=== PATIENT | female | born 1945 | race African-American/Black ===

== ENCOUNTER 2019-10-25 19:02 | Emergency (ER) | payer MEDICARE, MEDICAID ==
[~2019-10-25 19:02] MED LIST: Iopamidol-370 76% 500 ML 1 ML ONE
--- NOTE | 2019-10-25 20:00 | RAD ---
EXAM: CHEST ONE VIEW: 10/25/19 HISTORY: Shortness of breath, anxiety. COMPARISON: 09/15/19. FINDINGS: Poor inspiratory effort with minimal increased linear and interstitial markings bilaterally but overa ll stable. Left sided loop recorder. Heart size is within normal limits. IMPRESSION: Poor inspiration. No acute intrathoracic disease. Atherosclerosis of the aorta. Stable from prior roly dy. POS: RRE
[2019-10-25 20:15] LABS: #Eosinphils 0.1 thou/uL (0.0-0.7); #Lymphocytes 2.4 thou/uL (1.20-3.40); #Monocytes 0.8 thou/uL (0.11-0.59); #Neutrophils 11.3 thou/uL (1.40-6.50); %Basophils 0.2 % (0.0-1.0); %Eosinophils 0.5 % (0.0-10.0); %Lymphocytes 16.4 % (21.0-51.0); %Monocytes 5.2 % (0.0-10.0); %Neutrophils 77.7 % (42.0-75.0); Hemoglobin 11.6 g/dL (12.0-16.0); Mean Corpuscular HGB CONC 33.8 g/dL (32.0-36.0); Mean Corpuscular Hemoglobin 30.7 pg (27.0-31.0); Mean Corpuscular Volume 90.9 fL (78.0-98.0); Mean Platelet Volume 6.6 fL (7.4-10.4); Platelet Count 544 thou/uL (130-400); Red Blood Cell (RBC) Count 3.78 mill/uL (4.20-5.40); White Blood Cell (WBC) Count 14.5 thou/uL (4.8-10.8)
[2019-10-25 20:36] LABS: ALT (SGPT) 14 U/L (8-55); AST (SGOT) 18 U/L (5-34); Albumin 4.1 g/dL (3.4-4.8); Alkaline Phosphatase 231 U/L (40-110); Anion Gap 15 mmol/L (10-20); BUN (Urea Nitrogen) 14 mg/dL (9.8-20.1); Bilirubin, Total 0.3 mg/dL (0.2-1.2); Calc. Creatinine Clearance 0 mL/min (70-130); Calcium 9.5 mg/dL (7.8-10.44); Carbon Dioxide 22 mmol/L (23-31); Chloride 102 mmol/L (98-107); Estimated GFR-MDRD 60; Globulin 3.5 g/dL (2.4-3.5); Glucose 161 mg/dL (83-110); Potassium 3.9 mmol/L (3.5-5.1); Protein, Total 7.6 g/dL (6.0-8.3); Sodium 135 mmol/L (136-145)
--- NOTE | 2019-10-25 22:47 | CT ---
CT angiogram of the chest and abdomen: 10/25/2019 COMPARISON: None HISTORY: Chest pain and hypertension, assess for aneurysm or dissection TECHNIQUE: Axial CT imaging at 2.5 mm intervals through the chest and abdomen with IV contrast. Coron al and sagittal 3-D reformatted imaging obtained. FINDINGS: No chest lymphadenopathy. No significant pleural pericardial or mediastinal fluid. No pneum othorax. No pulmonary parenchymal nodule or focal area of pulmonary parenchymal opacity. The hepatic parenchyma is hypodense suggesting steatosis. Cholelithiasis noted. The spleen, pancreas, adr enal glands, and kidneys demonstrate no acute findings. There is diverticulosis of the descending colon. A colonic suture line is noted in the mid transverse colon region. There is no evidence for aneurysm or dissection of the thoracic or abdominal aorta. Coronary arterial calcification is present. The celiac axis, superior mesenteric artery, bilateral renal arteries, and inferior mesenteric artery are patent. There is prominent degenerative change within the mid/lower thoracic spine and within the lower lumba r spine. There are vacuum disc changes at L3-4, L4-5, and L5-S1. There is extensive lower lumbar spine facet hypertrophy and there is anterolisthesis at L4-5 measuring 9 mm. No worrisome lytic or bl astic bone lesion. IMPRESSION: Numerous incidental findings as detailed above. No evidence for aneurysm or dissection of the thoracic or abdominal aorta.
[2019-10-25 23:57] LABS: Bacteria/HPF None Seen HPF (None Seen); Bilirubin Negative (Negative); Blood, Urine Negative (Negative); Clarity Clear (Clear); Glucose, Urine (Dipstick) Normal (Negative); Ketone, Urine Negative (Negative); Leukocyte Negative Leu/uL (Negative); Nitrite Negative (Negative); Protein, Urine (Dipstick) 30 mg/dL (Neg-Trace); RBC/HPF 0-3 HPF (0-3); Specific Gravity, Urine 1.042 (1.002-1.036); Squamous Epithelial 0-3 HPF (0-3); Urobilinogen Normal mg/dL (Less than 2); WBC/HPF 0-3 HPF (0-3)
== END 2019-10-26 00:42 | disposition home or self-care (01) ==
LOC: ERS 19:02
DX: I10 Essential (primary) hypertension (principal); E78.5 Hyperlipidemia, unspecified; E11.9 Type 2 diabetes mellitus without complications; J45.909 Unspecified asthma, uncomplicated; Z87.891 Personal history of nicotine dependence; Z79.899 Other long term (current) drug therapy; Z79.82 Long term (current) use of aspirin; Z79.84 Long term (current) use of oral hypoglycemic drugs
CPT/HCPCS: 36415; 51701; 71045; 71275; 72191; 74175; 80053; 81003; 81015; 83880; 84484; 85025; 93005; 94760; Q9967

== ENCOUNTER 2019-11-05 11:13 | Outpatient (CLI) | payer MEDICARE, MEDICAID ==
--- NOTE | 2019-11-05 12:43 | RAD ---
PA AND LATERAL CHEST: HISTORY: Dyspnea. COMPARISON: 06/30/2019. Correlation is made to CT chest 10/25/2019 which showed nonspecific ground-glass opacities without focal infiltrate. FINDINGS: On the current exam, there is nonspecific linear haziness in the left lower lung which could represen t a peripheral ground-glass infiltrate. There is no evidence of confluent consolidation. No effusio n. No evidence of vascular congestion. Heart and mediastinum unremarkable. Osseous structures unre markable. IMPRESSION: Question infiltrate in the left lower lung. Recommend short-term followup. POS: AH
== END 2019-11-05 11:14 | disposition home or self-care (01) ==
LOC: BICRAD 11:13
PROVIDERS: ATTEND Internal Medicine Pulmonary Disease
DX: R06.00 Dyspnea, unspecified (principal)
CPT/HCPCS: 71046

== ENCOUNTER 2022-02-19 14:17 | Emergency (ER) | payer OTHER, MEDICAID ==
[2022-02-19 15:21] LABS: #Eosinphils 0.1 thou/uL (0.0-0.7); #Lymphocytes 3.2 thou/uL (1.20-3.40); #Monocytes 0.5 thou/uL (0.11-0.59); #Neutrophils 3.9 thou/uL (1.40-6.50); %Basophils 0.5 % (0.0-1.0); %Eosinophils 1.7 % (0.0-10.0); %Lymphocytes 41.6 % (21.0-51.0); %Neutrophils 50.3 % (42.0-75.0); Hemoglobin 11.7 g/dL (12.0-16.0); Mean Corpuscular HGB CONC 30.8 g/dL (32.0-36.0); Mean Corpuscular Hemoglobin 27.4 pg (27.0-31.0); Mean Corpuscular Volume 88.9 fl (78.0-98.0); Mean Platelet Volume 7.8 fL (7.4-10.4); Platelet Count 368 thou/uL (130-400); RBC Distribution Width 15.5 % (11.5-14.5); Red Blood Cell (RBC) Count 4.25 mill/uL (4.20-5.40); White Blood Cell (WBC) Count 7.7 thou/uL (4.8-10.8)
[2022-02-19 15:37] LABS: ALT (SGPT) 19 U/L (8-55); AST (SGOT) 23 U/L (5-34); Albumin 3.8 g/dL (3.4-4.8); Alkaline Phosphatase 192 U/L (40-110); Anion Gap 15 mmol/L (10-20); BUN (Urea Nitrogen) 14 mg/dL (9.8-20.1); Bilirubin, Total 0.6 mg/dL (0.2-1.2); Calc. Creatinine Clearance 0 mL/min (70-130); Calcium 9.8 mg/dL (7.8-10.44); Carbon Dioxide 21 mmol/L (23-31); Chloride 103 mmol/L (98-107); Estimated GFR 56; Globulin 3.7 g/dL (2.4-3.5); Glucose 105 mg/dL (83-110); Potassium 4.7 mmol/L (3.5-5.1); Protein, Total 7.5 g/dL (5.8-8.1); Sodium 134 mmol/L (136-145)
[2022-02-19] MEDS ORDERED: hydrOXYzine 25 MG TAB ONE (16:02)
[2022-02-19] MEDS ORDERED: Acetaminophen 500 MG TAB ONE (16:02)
[2022-02-19] MEDS ORDERED: hydrALAZINE 25 MG TAB ONE (16:04)
== END 2022-02-19 16:26 | disposition home or self-care (01) ==
LOC: ERS 14:17
DX: I10 Essential (primary) hypertension (principal); E11.9 Type 2 diabetes mellitus without complications; E78.00 Pure hypercholesterolemia, unspecified; R51.9 Headache, unspecified; Z87.891 Personal history of nicotine dependence; Z79.84 Long term (current) use of oral hypoglycemic drugs; Z79.899 Other long term (current) drug therapy
CPT/HCPCS: 36415; 70450; 80053; 84484; 85025; 93005

== ENCOUNTER 2022-03-04 14:38 | Inpatient (IN) | payer OTHER, MEDICAID ==
[2022-03-04 15:32] LABS: #Lymphocytes 2.3 thou/uL (1.20-3.40); #Monocytes 0.7 thou/uL (0.11-0.59); #Neutrophils 13.7 thou/uL (1.40-6.50); %Basophils 0.2 % (0.0-1.0); %Eosinophils 0.1 % (0.0-10.0); %Lymphocytes 13.8 % (21.0-51.0); %Monocytes 4.1 % (0.0-10.0); %Neutrophils 81.8 % (42.0-75.0); Hemoglobin 7.3 g/dL (12.0-16.0); Mean Corpuscular HGB CONC 32.4 g/dL (32.0-36.0); Mean Corpuscular Hemoglobin 29.4 pg (27.0-31.0); Mean Corpuscular Volume 90.9 fl (78.0-98.0); Mean Platelet Volume 7.5 fL (7.4-10.4); Platelet Count 460 10x3/uL (130-400); RBC Distribution Width 15.6 % (11.5-14.5); Red Blood Cell (RBC) Count 2.47 mill/uL (4.20-5.40); White Blood Cell (WBC) Count 16.8 10x3/uL (4.8-10.8)
[2022-03-04] MEDS ORDERED: Ondansetron PF 4 MG/2 ML Vial IVP PRN (15:50)
[2022-03-04] MEDS ORDERED: Senokot S 8.6-50 MG TAB PO PRN (15:50)
[2022-03-04] MEDS ORDERED: Ondansetron ODT 4 MG TAB PO PRN (15:50)
[2022-03-04 15:51] LABS: Anion Gap 15 mmol/L (10-20); BUN (Urea Nitrogen) 21 mg/dL (9.8-20.1); Calc. Creatinine Clearance 0 mL/min (70-130); Calcium 8.5 mg/dL (7.8-10.44); Carbon Dioxide 17 mmol/L (23-31); Chloride 107 mmol/L (98-107); Estimated GFR 43; Glucose 136 mg/dL (83-110); Potassium 4.7 mmol/L (3.5-5.1); Sodium 134 mmol/L (136-145)
[2022-03-04] MEDS: Sodium Chloride 0.9% 1,000 ML IV SCH (17:10)
[2022-03-04] MEDS ORDERED: Dextrose 50% Abboject 50 ML SYRINGE SLOW IVP PRN (17:18)
[2022-03-04] MEDS ORDERED: Dextrose 5% in Water 1,000 ML IV PRN (17:18)
[2022-03-04 18:12] VITALS: BMI 29.6
[2022-03-04] MEDS: Pantoprazole 40 MG VIAL IVP SCH (21:16)
[2022-03-04 21:39] LABS: Hemoglobin 6.3 g/dL (12.0-16.0)
[2022-03-05] MEDS: Sodium Chloride 0.9% 1,000 ML IV SCH (03:55)
[2022-03-05 06:36] LABS: ALT (SGPT) 16 U/L (8-55); AST (SGOT) 32 U/L (5-34); Albumin 2.8 g/dL (3.4-4.8); Alkaline Phosphatase 123 U/L (40-110); Anion Gap 13 mmol/L (10-20); BUN (Urea Nitrogen) 25 mg/dL (9.8-20.1); Bilirubin, Total 0.8 mg/dL (0.2-1.2); Calc. Creatinine Clearance 39 mL/min (70-130); Calcium 7.7 mg/dL (7.8-10.44); Carbon Dioxide 17 mmol/L (23-31); Chloride 110 mmol/L (98-107); Estimated GFR 38; Globulin 2.9 g/dL (2.4-3.5); Glucose 97 mg/dL (83-110); Potassium 4.8 mmol/L (3.5-5.1); Protein, Total 5.7 g/dL (5.8-8.1); Sodium 135 mmol/L (136-145)
[2022-03-05 06:45] LABS: Mean Corpuscular Hemoglobin 29.5 pg (27.0-31.0); Mean Corpuscular Volume 92.2 fl (78.0-98.0); Mean Platelet Volume 7.9 fL (7.4-10.4); Platelet Count 315 10x3/uL (130-400); Red Blood Cell (RBC) Count 2.38 mill/uL (4.20-5.40); White Blood Cell (WBC) Count 15.2 10x3/uL (4.8-10.8)
[2022-03-05 06:49] LABS: Band 1 % (5-11); Eosinophils 1 % (0-10); Lymphocytes 25 % (21-51); MDiff Complete? YES; Monocytes 5 % (0-10); Neutrophil 68 % (42-75)
[2022-03-05] MEDS: Atorvastatin Calcium 40 MG TAB PO SCH (09:36)
[2022-03-05] MEDS: Pantoprazole 40 MG VIAL IVP SCH ×2 (09:36→21:02)
[2022-03-05 15:36] LABS: Platelet Count 322 10x3/uL (130-400)
[2022-03-05] MEDS: hydrALAZINE 20 MG/ML VIAL SLOW IVP PRN (22:57)
[2022-03-06 00:35] LABS: Hemoglobin 8.9 g/dL (12.0-16.0); Platelet Count 297 10x3/uL (130-400)
[2022-03-06] MEDS: hydrALAZINE 20 MG/ML VIAL SLOW IVP PRN (04:44)
[2022-03-06] MEDS: Acetaminophen 325 MG TAB PO PRN ×2 (05:39→09:04)
[2022-03-06] MEDS: Losartan 25 MG TAB PO SCH (09:03)
[2022-03-06] MEDS: hydrALAZINE 25 MG TAB PO SCH ×2 (09:04→21:08)
[2022-03-06] MEDS: Atorvastatin Calcium 40 MG TAB PO SCH (09:04)
[2022-03-06] MEDS: Pantoprazole 40 MG VIAL IVP SCH ×2 (09:05→21:08)
[2022-03-06] MEDS: Amlodipine 10 MG TAB PO SCH (09:34)
[2022-03-06] MEDS: Carvedilol 3.125 MG TAB PO SCH ×2 (09:34→21:08)
[2022-03-06] MEDS: HumaLOG 300 UNITS/3 ML VIAL SC PRN ×2 (13:08→18:29)
[2022-03-06] MEDS: [UNRECOGNIZED DRUG - OTHER] INH SCH ×2 (19:04→19:05)
[2022-03-06 19:12] LABS: #Eosinphils 0.5 thou/uL (0.0-0.7); #Lymphocytes 3.4 thou/uL (1.20-3.40); #Monocytes 0.7 thou/uL (0.11-0.59); #Neutrophils 8.3 thou/uL (1.40-6.50); %Basophils 0.1 % (0.0-1.0); %Eosinophils 3.8 % (0.0-10.0); %Lymphocytes 26.5 % (21.0-51.0); %Monocytes 5.6 % (0.0-10.0); %Neutrophils 64.1 % (42.0-75.0); Hemoglobin 8.7 g/dL (12.0-16.0); Mean Corpuscular HGB CONC 32.4 g/dL (32.0-36.0); Mean Corpuscular Hemoglobin 29.3 pg (27.0-31.0); Mean Corpuscular Volume 90.5 fl (78.0-98.0); Mean Platelet Volume 7.2 fL (7.4-10.4); Platelet Count 295 10x3/uL (130-400); RBC Distribution Width 14.7 % (11.5-14.5); Red Blood Cell (RBC) Count 2.98 mill/uL (4.20-5.40); White Blood Cell (WBC) Count 12.9 10x3/uL (4.8-10.8)
[2022-03-06 19:29] LABS: Anion Gap 13 mmol/L (10-20); BUN (Urea Nitrogen) 15 mg/dL (9.8-20.1); Calc. Creatinine Clearance 59 mL/min (70-130); Calcium 8.4 mg/dL (7.8-10.44); Carbon Dioxide 17 mmol/L (23-31); Chloride 106 mmol/L (98-107); Estimated GFR 64; Glucose 168 mg/dL (83-110); Potassium 3.9 mmol/L (3.5-5.1); Sodium 132 mmol/L (136-145)
[2022-03-07] MEDS: hydrALAZINE 20 MG/ML VIAL SLOW IVP PRN ×2 (02:41→05:53)
[2022-03-07 05:42] LABS: #Eosinphils 0.5 thou/uL (0.0-0.7); #Lymphocytes 2.3 thou/uL (1.20-3.40); #Monocytes 0.7 thou/uL (0.11-0.59); #Neutrophils 7.6 thou/uL (1.40-6.50); %Basophils 0.1 % (0.0-1.0); %Eosinophils 4.8 % (0.0-10.0); %Lymphocytes 20.8 % (21.0-51.0); %Monocytes 5.8 % (0.0-10.0); %Neutrophils 68.5 % (42.0-75.0); Hemoglobin 8.2 g/dL (12.0-16.0); Mean Corpuscular HGB CONC 32.5 g/dL (32.0-36.0); Mean Corpuscular Hemoglobin 30.1 pg (27.0-31.0); Mean Corpuscular Volume 92.5 fl (78.0-98.0); Mean Platelet Volume 7.2 fL (7.4-10.4); Platelet Count 310 10x3/uL (130-400); RBC Distribution Width 14.7 % (11.5-14.5); Red Blood Cell (RBC) Count 2.71 mill/uL (4.20-5.40); White Blood Cell (WBC) Count 11.1 10x3/uL (4.8-10.8)
[2022-03-07 05:56] LABS: Anion Gap 12 mmol/L (10-20); BUN (Urea Nitrogen) 11 mg/dL (9.8-20.1); Calc. Creatinine Clearance 64 mL/min (70-130); Calcium 8.5 mg/dL (7.8-10.44); Carbon Dioxide 19 mmol/L (23-31); Chloride 109 mmol/L (98-107); Estimated GFR 71; Glucose 131 mg/dL (83-110); Magnesium 1.8 mg/dL (1.6-2.6); Potassium 3.9 mmol/L (3.5-5.1); Sodium 136 mmol/L (136-145)
[2022-03-07] MEDS ORDERED: Magnesium 2 GM/50 ML(in water) 2 GM in Premix Bag 1 BAG IVPB SCH (07:45)
[2022-03-07] MEDS ORDERED: Electrolyte Replacement Protocol FS PRN (07:45)
[2022-03-07] MEDS: [UNRECOGNIZED DRUG - OTHER] INH SCH (09:18)
[2022-03-07] MEDS: Amlodipine 10 MG TAB PO SCH (09:21)
[2022-03-07] MEDS: Losartan 25 MG TAB PO SCH (09:21)
[2022-03-07] MEDS: Atorvastatin Calcium 40 MG TAB PO SCH (09:21)
[2022-03-07] MEDS: Carvedilol 3.125 MG TAB PO SCH ×2 (09:21→21:20)
[2022-03-07] MEDS: hydrALAZINE 25 MG TAB PO SCH ×2 (09:21→21:20)
[2022-03-07] MEDS: Acetaminophen 325 MG TAB PO PRN (09:22)
[2022-03-07] MEDS: Pantoprazole 40 MG VIAL IVP SCH ×2 (09:23→21:20)
[2022-03-07 15:14] LABS: Hemoglobin 8.1 g/dL (12.0-16.0); Platelet Count 350 10x3/uL (130-400)
[2022-03-07] MEDS: HumaLOG 300 UNITS/3 ML VIAL SC PRN (17:11)
[2022-03-08 05:00] LABS: #Eosinphils 0.4 thou/uL (0.0-0.7); #Lymphocytes 2.5 thou/uL (1.20-3.40); #Monocytes 0.6 thou/uL (0.11-0.59); #Neutrophils 5.2 thou/uL (1.40-6.50); %Basophils 0.4 % (0.0-1.0); %Eosinophils 4.1 % (0.0-10.0); %Lymphocytes 28.6 % (21.0-51.0); %Monocytes 7.1 % (0.0-10.0); %Neutrophils 59.8 % (42.0-75.0); Hemoglobin 8.7 g/dL (12.0-16.0); Mean Corpuscular Hemoglobin 30.4 pg (27.0-31.0); Mean Corpuscular Volume 92.3 fl (78.0-98.0); Mean Platelet Volume 7.8 fL (7.4-10.4); Platelet Count 325 10x3/uL (130-400); RBC Distribution Width 15.2 % (11.5-14.5); Red Blood Cell (RBC) Count 2.86 mill/uL (4.20-5.40); White Blood Cell (WBC) Count 8.7 10x3/uL (4.8-10.8)
[2022-03-08 05:54] LABS: Anion Gap 12 mmol/L (10-20); BUN (Urea Nitrogen) 12 mg/dL (9.8-20.1); Calc. Creatinine Clearance 63 mL/min (70-130); Calcium 8.6 mg/dL (7.8-10.44); Carbon Dioxide 20 mmol/L (23-31); Chloride 106 mmol/L (98-107); Estimated GFR 69; Glucose 120 mg/dL (83-110); Magnesium 2.3 mg/dL (1.6-2.6); Potassium 4.1 mmol/L (3.5-5.1); Sodium 134 mmol/L (136-145)
[2022-03-08 06:41] LABS: Phosphorus 2.6 mg/dL (2.3-4.7)
[2022-03-08] MEDS: Carvedilol 3.125 MG TAB PO SCH ×2 (11:08→21:49)
[2022-03-08] MEDS: hydrALAZINE 25 MG TAB PO SCH ×2 (11:08→21:49)
[2022-03-08] MEDS: Amlodipine 10 MG TAB PO SCH (11:09)
[2022-03-08] MEDS: Losartan 25 MG TAB PO SCH (11:09)
[2022-03-08] MEDS: Atorvastatin Calcium 40 MG TAB PO SCH (11:09)
[2022-03-08] MEDS: Pantoprazole 40 MG VIAL IVP SCH ×2 (11:09→21:49)
[2022-03-08] MEDS: [UNRECOGNIZED DRUG - OTHER] INH SCH (11:12)
[2022-03-09] MEDS: [UNRECOGNIZED DRUG - OTHER] INH SCH (08:57)
[2022-03-09] MEDS: Pantoprazole 40 MG VIAL IVP SCH (08:57)
[2022-03-09] MEDS: Carvedilol 3.125 MG TAB PO SCH (08:58)
[2022-03-09] MEDS: hydrALAZINE 25 MG TAB PO SCH (08:58)
[2022-03-09] MEDS: Atorvastatin Calcium 40 MG TAB PO SCH (08:58)
[2022-03-09] MEDS: Losartan 25 MG TAB PO SCH (08:58)
[2022-03-09] MEDS: Amlodipine 10 MG TAB PO SCH (08:58)
[2022-03-09 11:55] VITALS: TEMP 97.7
[2022-03-09 13:20] VITALS: BP 138/77
== END 2022-03-09 15:06 | disposition home health service (06) | DRG 377 ==
LOC: SUATTDRO 14:38 → ERS 14:38 → NEURO 15:50
PROVIDERS: ADMIT Internal Medicine; ATTEND Family Medicine
PROC: 30233N1 Transfusion of Nonautologous Red Blood Cells into Peripheral Vein, Percutaneous Approach (ICD-10-PCS; principal; 2022-03-04)
DX: K57.31 Diverticulosis of large intestine without perforation or abscess with bleeding (principal); S06.6XAA Traumatic subarachnoid hemorrhage with loss of consciousness status unknown, initial encounter; D62 Acute posthemorrhagic anemia; N17.9 Acute kidney failure, unspecified; K64.8 Other hemorrhoids; I10 Essential (primary) hypertension; E78.5 Hyperlipidemia, unspecified; E78.00 Pure hypercholesterolemia, unspecified; Z20.822 Contact with and (suspected) exposure to COVID-19; E11.9 Type 2 diabetes mellitus without complications; J44.9 Chronic obstructive pulmonary disease, unspecified; D64.9 Anemia, unspecified; W19.XXXA Unspecified fall, initial encounter; Z79.84 Long term (current) use of oral hypoglycemic drugs; Z79.899 Other long term (current) drug therapy; Z79.51 Long term (current) use of inhaled steroids; Z95.0 Presence of cardiac pacemaker; Z87.891 Personal history of nicotine dependence
CPT/HCPCS: 36415; 36416; 36430; 70450; 80048; 80053; 83735; 84100; 85025; 86850; 86900; 86901; 99285; C9113; J0360; J1815; J3475; J7050; P9016; U0003; U0005

== ENCOUNTER 2023-10-18 19:43 | Inpatient (IN) | payer OTHER, MEDICAID ==
[2023-10-18 22:40] VITALS: BMI 28.9
[2023-10-18] MEDS: Fleet Saline Enema 133 ML BOT PR SCH (22:48)
[2023-10-18] MEDS ORDERED: Etomidate 40 MG (20 mL) VIAL ONE (23:07)
[2023-10-18] MEDS ORDERED: PROPOFOL 20 ML ONE (23:07)
[2023-10-18 23:56] LABS: Troponin I 0.099 ng/mL (< 0.028)
[2023-10-19] MEDS ORDERED: Albuterol 200 PUFF INH INH PRN (04:03)
[2023-10-19 04:14] LABS: Hematocrit 34.7 % (36.0-47.0); Hemoglobin 11.8 g/dL (12.0-16.0); Platelet Count 281 10x3/uL (130-400)
[2023-10-19 04:15] LABS: #Basophils 0.03 10x3/uL (0.0-0.2); #Eosinphils Less than 0.03 10x3/uL (0.0-0.7); %Basophils 0.2 % (0.0-1.0); %Eosinophils 0.1 % (0.0-10.0); %Lymphocytes 18.8 % (21.0-51.0); %Monocytes 7.2 % (0.0-10.0); %Neutrophils 72.7 % (42.0-75.0); Hematocrit 34.4 % (36.0-47.0); Hemoglobin 11.7 g/dL (12.0-16.0); Mean Corpuscular Hemoglobin 29.1 pg (27.0-31.0); Mean Corpuscular Volume 85.6 fL (78.0-98.0); Mean Platelet Volume 9.3 fL (7.4-10.4); Platelet Count 260 10x3/uL (130-400); RBC Distribution Width 14.6 % (11.5-14.5); Red Blood Cell (RBC) Count 4.02 mill/uL (4.20-5.40)
[2023-10-19 04:50] LABS: ALT (SGPT) 14 U/L (8-55); AST (SGOT) 17 U/L (5-34); Albumin 2.2 g/dL (3.4-4.8); Alkaline Phosphatase 137 U/L (40-110); Anion Gap 11 mmol/L (10-20); BUN (Urea Nitrogen) 19 mg/dL (9.8-20.1); Bilirubin, Total 0.7 mg/dL (0.2-1.2); Calc. Creatinine Clearance 49 mL/min (70-130); Calcium 8.3 mg/dL (7.8-10.44); Carbon Dioxide 20 mmol/L (23-31); Chloride 109 mmol/L (98-107); Estimated GFR 55; Globulin 3.4 g/dL (2.4-3.5); Glucose 123 mg/dL (83-110); Potassium 3.8 mmol/L (3.5-5.1); Protein, Total 5.6 g/dL (5.8-8.1); Sodium 136 mmol/L (136-145); Troponin I 0.077 ng/mL (< 0.028)
[2023-10-19] MEDS: Mometasone 100 MCG/Formoterol 5 MCG 120 PUFF INHALER INH SCH (06:41)
[2023-10-19] MEDS ORDERED: Carvedilol 6.25 MG TAB PO SCH (09:00)
[2023-10-19] MEDS ORDERED: Famotidine 20 MG TAB PO SCH (09:00)
[2023-10-19 10:30] VITALS: BMI 28.9
[2023-10-19] MEDS: Ferrous Sulfate 325 MG TAB PO SCH (11:12)
[2023-10-19] MEDS: Carvedilol 3.125 MG TAB PO SCH (11:12)
[2023-10-19] MEDS: Benzonatate 100 MG CAP PO PRN (12:30)
[2023-10-19] MEDS: Pantoprazole 40 MG VIAL IVP SCH (12:34)
[2023-10-19 14:30] LABS: Mean Corpuscular HGB CONC 32.5 g/dL (32.0-36.0); Mean Corpuscular Hemoglobin 29.2 pg (27.0-31.0); Mean Corpuscular Volume 89.9 fL (78.0-98.0); Mean Platelet Volume 9.5 fL (7.4-10.4); Platelet Count 252 10x3/uL (130-400); RBC Distribution Width 14.9 % (11.5-14.5); Red Blood Cell (RBC) Count 4.45 mill/uL (4.20-5.40)
[2023-10-19 14:50] VITALS: BP 126/81
[2023-10-20 05:56] LABS: #Basophils Less than 0.03 10x3/uL (0.0-0.2); %Basophils 0.1 % (0.0-1.0); %Eosinophils 1.9 % (0.0-10.0); %Lymphocytes 20.4 % (21.0-51.0); %Monocytes 8.9 % (0.0-10.0); %Neutrophils 67.6 % (42.0-75.0); Hematocrit 27.5 % (36.0-47.0); Hemoglobin 9.2 g/dL (12.0-16.0); Mean Corpuscular HGB CONC 33.5 g/dL (32.0-36.0); Mean Corpuscular Volume 86.8 fL (78.0-98.0); Mean Platelet Volume 9.8 fL (7.4-10.4); Platelet Count 257 10x3/uL (130-400); Red Blood Cell (RBC) Count 3.17 mill/uL (4.20-5.40)
[2023-10-20 14:02] LABS: Hematocrit 32.2 % (36.0-47.0); Hemoglobin 10.6 g/dL (12.0-16.0)
[2023-10-21 00:38] LABS: #Basophils 0.03 10x3/uL (0.0-0.2); %Basophils 0.2 % (0.0-1.0); %Eosinophils 2.1 % (0.0-10.0); %Lymphocytes 21.5 % (21.0-51.0); %Monocytes 10.1 % (0.0-10.0); %Neutrophils 65.4 % (42.0-75.0); Hematocrit 31.5 % (36.0-47.0); Hemoglobin 10.3 g/dL (12.0-16.0); Mean Corpuscular HGB CONC 32.7 g/dL (32.0-36.0); Mean Corpuscular Hemoglobin 29.4 pg (27.0-31.0); Mean Platelet Volume 10.1 fL (7.4-10.4); Platelet Count 255 10x3/uL (130-400); RBC Distribution Width 15.3 % (11.5-14.5)
[2023-10-21] MEDS: Acetaminophen 325 MG TAB PO PRN (02:12)
[2023-10-21] MEDS: Losartan 25 MG TAB PO SCH (08:35)
[2023-10-21 08:47] VITALS: TEMP 97.9
== END 2023-10-21 12:05 | disposition home or self-care (01) | DRG 378 ==
LOC: IMCU/EMU 21:58
PROVIDERS: ADMIT Family Medicine; ATTEND Family Medicine
PROC: 0DJD8ZZ Inspection of Lower Intestinal Tract, Via Natural or Artificial Opening Endoscopic (ICD-10-PCS; principal; 2023-10-19)
DX: K57.31 Diverticulosis of large intestine without perforation or abscess with bleeding (principal); D62 Acute posthemorrhagic anemia; Z66 Do not resuscitate; E87.6 Hypokalemia; K64.8 Other hemorrhoids; L91.8 Other hypertrophic disorders of the skin; E11.9 Type 2 diabetes mellitus without complications; K55.21 Angiodysplasia of colon with hemorrhage; I10 Essential (primary) hypertension; E78.5 Hyperlipidemia, unspecified; J44.9 Chronic obstructive pulmonary disease, unspecified; R63.4 Abnormal weight loss; I95.9 Hypotension, unspecified; M19.90 Unspecified osteoarthritis, unspecified site; Z79.899 Other long term (current) drug therapy; Z79.82 Long term (current) use of aspirin; Z87.891 Personal history of nicotine dependence; Z68.29 Body mass index [BMI] 29.0-29.9, adult; K92.2 Gastrointestinal hemorrhage, unspecified; R53.83 Other fatigue; R79.89 Other specified abnormal findings of blood chemistry
CPT/HCPCS: 36415; 36430; 51701; 71045; 74174; 80053; 81001; 83605; 83735; 83880; 84484; 85014; 85018; 85025; 85049; 85610; 85730; 86850; 86900; 86901; 93005; 96374; 96375; C9113; J0612; J2704; J3480; P9016; Q9967